=== PATIENT | male | born 1985 | race Caucasian/White ===

== ENCOUNTER 2020-02-17 11:19 | Emergency (ER) | payer OTHER ==
[2020-02-17 11:32] VITALS: TEMP 97.7
[2020-02-17] MEDS ORDERED: KETOROLAC 60 MG/2 ML VIAL IM STA (11:48)
--- NOTE | 2020-02-17 12:12 | XR ---
EXAMINATION TYPE: XR ankle complete RT DATE OF EXAM: 02/17/2020 COMPARISON: NONE HISTORY: Pain TECHNIQUE: Frontal, lateral and oblique images of the right ankle are obtained. COMPARISON: None. FINDINGS: Trimalleolar fracture noted. The soft tissue edema seen. Ankle mortise intact. IMPRESSION: Trimalleolar fracture.
[2020-02-17] MEDS ORDERED: HYDROcodone/APAP 7.5-325MG 1 EACH TAB PO ONE (12:55)
--- NOTE | 2020-02-17 13:20 | ED ---
Fall HPI - General Chief Complaint: Fall Stated Complaint: fall 12' from ladder Time Seen by Provider: 02/17/20 11:42 Source: patient Mode of arrival: wheelchair - History of Present Illness Initial Comments: Patient is a 34-year-old male presenting to emergency Department with complaints of right ankle pain after he jumped off of a ladder. Patient states this happened approximately one hour prior to arrival. He states he was on a ladder, cleaning off gutters when a swarm of bees started to come after him. Patient states he jumped backwards off the ladder, landing mostly on his right ankle. He states he did not hit his head, he denies any neck or back pain. He denies any upper extremity pain or belly pain. He states his only complaint from this fall is the right ankle pain. The previous ankle surgeries. He has no further complaints at this time. Upon arrival to the ER, his vitals are stable. - Related Data Previous Rx's Medication Instructions Recorded Hydrocodone/Acetaminophen [T[place] 1 tab PO Q6HR PRN #10 tab 02/17/20 5-325] Allergies Allergy/AdvReac Type Severity Reaction Status Date / Time No Known Allergies Allergy Verified 02/17/20 12:37 Review of Systems ROS Statement: Those systems with pertinent positive or pertinent negative responses have been documented in the HPI. ROS Other: All systems not noted in ROS Statement are negative. Past Medical History Past Medical History: No Reported History History of Any Multi-Drug Resistant Organisms: None Reported Past Surgical History: No Surgical Hx Reported Past Psychological History: No Psychological Hx Reported Smoking Status: Current every day smoker Past Alcohol Use History: Occasional Past Drug Use History: Marijuana General Exam - General Exam Comments Initial Comments: GENERAL: Patient is well-developed and well-nourished. Patient is nontoxic and in no acute distress. HEAD: Atraumatic, normocephalic. EYES: Pupils equal round and reactive to light, extraocular movements intact, sclera anicteric, conjunctiva are normal. Eyelids were unremarkable. ENT: TMs normal, nares patent, oropharynx clear without exudates. Moist mucous membranes. NECK: Normal range of motion, supple without lymphadenopathy or JVD. LUNGS: Unlabored respirations. Breath sounds clear to auscultation bilaterally and equal. No wheezes rales or rhonchi. HEART: Regular rate and rhythm without murmurs, rubs or gallops. ABDOMEN: Soft, nontender, normoactive bowel sounds. No guarding, no rebound. No masses appreciated. : Deferred MUSCULOSKELETAL: Pain with palpation of the right medial and lateral ankle, obvious deformity felt on the lateral malleolus. There is some moderate edema. Patient has decreased ankle range of motion secondary to pain. He does have full toe range of motion. He is neurovascular intact. No clubbing or cyanosis. NEUROLOGICAL: Patient is alert and oriented x 3. Motor and sensory are also intact. Normal speech. Symmetrical smile. PSYCH: Normal mood, normal affect. SKIN: Warm, Dry, normal turgor, no rashes or lesions noted. Limitations: no limitations Course Vital Signs 02/17/20 02/17/20 11:30 14:13 Temperature 97.7 F Pulse Rate 57 L 79 Respiratory 20 18 Rate Blood Pressure 116/73 120/80 O2 Sat by Pulse 100 99 Oximetry Procedures - Orthopedic Splinting/Casting Injury #1 Side: right Lower Extremity Injury Location: short leg, ankle Lower Extremity Immobilizer: posterior splint, stirrup splint, Sampson wrap, synthetic pre-padded splint Medical Decision Making - Medical Decision Making Patient is a 34-year-old male here for right ankle pain after he jumped off of a ladder. X-rays reveal a trimalar fracture of the right ankle. There is no significant displacement. Patient was placed in a posterior and stirrup splint, well-padded. Patient will remain nonweightbearing. He will follow up with orthopedics. I did give patient a short prescription for [place] for pain. He is stable for discharge. Return parameters were discussed with the patient he verbalizes understanding. Case discussed with Dr. Estrada Disposition Clinical Impression: Closed trimalleolar fracture of right ankle, Fall Disposition: HOME SELF-CARE Condition: Stable Instructions (If sedation given, give patient instructions): Ankle Fracture (ED) Additional Instructions: Please return to the Emergency Department if symptoms worsen or any other concerns. Keep splint in place until follow-up with orthopedics. Rest, ice, elevate the right leg. Do not place any weight on the right lower extremity. Prescriptions: Hydrocodone/Acetaminophen [Tacoma 5-325] 1 tab PO Q6HR PRN #10 tab PRN Reason: Pain Is patient prescribed a controlled substance at d/c from ED?: Yes When asked, does pt state using other controlled substances?: No If prescribed controlled substance>3 days was MAPS reviewed?: Prescribed <3 Days If opioid is for acute pain is fill amount 7 days or less?: Yes If Rx opioid, was Start Talking consent form obtained?: Yes Referrals: None,Stated [Primary Care Provider] - 1-2 days James Rajan, DO [Medical Doctor] - 1-2 days
[2020-02-17 14:14] VITALS: BP 120/80; PULSE 79; RESP 18
== END 2020-02-17 13:30 | disposition home or self-care (01) ==
LOC: EC 11:19
DX: S82.851A Displaced trimalleolar fracture of right lower leg, initial encounter for closed fracture (principal); F17.200 Nicotine dependence, unspecified, uncomplicated; W17.89XA Other fall from one level to another, initial encounter; Y93.89 Activity, other specified; Y92.009 Unspecified place in unspecified non-institutional (private) residence as the place of occurrence of the external cause
CPT/HCPCS: 73610; 99283; 96372; 29515; J1885

== ENCOUNTER 2020-02-24 13:58 | Day surgery (SDC) | payer SELFPAY ==
[2020-02-23 12:31] VITALS: BMI 25.0
[~2020-02-24 13:58] MED LIST: DEXAMETHASONE SOD PHOSPHATE 10 MG/ML 1 ML VIAL IV ONE; HYDROmorphone 0.5 MG/0.5 ML SYRINGE IVP PRN; LACTATED RINGERS 1,000 ML IV SCH; MIDAZOLAM 2 MG/2 ML VIAL IV PRN; ONDANSETRON 4 MG/2 ML VIAL IVP ONE; SCOPOLAMINE 1.5MG/72HR PATCH TRANSDERM ONE
[2020-02-24] MEDS ORDERED: ONDANSETRON 4 MG/2 ML VIAL ONE (14:24)
[2020-02-24] MEDS ORDERED: LIDOCAINE 1% (10MG/ML) FOR IV START INTRADERMA ONE (14:40)
[2020-02-24] MEDS ORDERED: fentaNYL (PF) 50 MCG/ML 2 ML AMP ONE (16:02)
[2020-02-24] MEDS ORDERED: HYDROmorphone (PF) 1 MG/ML ONE (16:02)
[2020-02-24] MEDS ORDERED: LIDOCAINE 1% INJ 10MG/ML (20 ML MDV) ONE (16:02)
[2020-02-24] MEDS ORDERED: MIDAZOLAM 2 MG/2 ML VIAL ONE (16:02)
[2020-02-24] MEDS ORDERED: PROPOFOL 10 MG/ML 20 ML VIAL IV ONE (16:02)
[2020-02-24] MEDS ORDERED: ceFAZolin 1,000 MG in SODIUM CHLORIDE 0.9% 1,000 ML IRRIGATION ONE (16:32)
[2020-02-24] MEDS ORDERED: LACTATED RINGERS 1,000 ML IV ONE (17:10)
[2020-02-24] MEDS ORDERED: BUPIVACAINE (PF) 0.25% 30 ML VIAL SQ ONE (17:20)
--- NOTE | 2020-02-24 17:38 | P.OP ---
Date of Procedure: 02/24/20 Preoperative Diagnosis: Trimalleolar displaced fracture right ankle Postoperative Diagnosis: Trimalleolar displaced fracture right ankle Procedure(s) Performed: Open reduction and internal fixation of the distal fibula and medial malleolus Implants: Schultz and nephew small fragment plates Anesthesia: GETA Surgeon: Denny Marie Sequins Slinger #1: Ana Hammond Estimated Blood Loss (ml): 20 Pathology: none sent Condition: stable Disposition: PACU Indications for Procedure: This is a 34-year-old gentleman sustained a fracture of his right ankle last weekend. X-rays demonstrated displaced trimalleolar fracture of his right ankle with a displaced spiral fracture of his distal fibula and also displaced fracture of his medial malleolus and posterior malleolus. After discussing the surgical and nonsurgical treatment options with him at length I've recommended open reduction and internal fixation of his right ankle. He is agreeable to this informed consent was obtained. Operative Findings: The operative findings are consistent with a displaced trimalleolar fracture of the right ankle. Description of Procedure: The patient was seen and evaluated in the preoperative area. The consent was reviewed and the operative site was marked with a skin marker. Patient was then brought to the operating room and given 2 g of Ancef by the anesthesia department. A general anesthetic was then administered by the anesthesia department. Tourniquet was placed on the upper thigh and the lower extremity was then prepped and draped in the usual sterile fashion. A universal timeout was then performed which confirmed the patient's name, surgical site, ALLERGIES, and consent. The lower extremity was then exsanguinated, and the tourniquet inflated to 250 mmHg. A standard lateral incision was then performed over the distal fibula with the skin and subcutaneous tissue sharply incised with the incision centered over the fracture site. Tissues were carefully dissected down to the fracture site. The fracture hematoma was evacuated and the fracture was then reduced with bone reducing clamps. Fluoroscopic x-rays confirmed reduction of the fracture and rastafarian of the ankle mortise. Next, an anterior to posterior lag screw was then placed by over drilling the proximal hole. After the anterior to posterior lag screw was placed, the bone clamp was able to be removed and the fracture was held stable. Next, a one third semitubular plate was pre-bent for the patient's anatomy, and placed on the lateral aspect of the distal fibula. Screws were then were placed both proximally and distally in order to fixate the plate to the distal fibula. After all the screws then placed, final fluoroscopic x-rays confirmed reduction of the fracture, rastafarian of the ankle mortise, and placement of the plate and screws. Next attention was then directed to the medial malleolus. A small incision was made over the fracture site of the medial malleolus taking care to avoid the neurovascular structures. The medial malleolar fracture was debrided and a small amount of periosteum was removed from the fracture site. The fracture was then reduced and held with a towel clip. 2 cannulated screws then placed retrograde through the tip of the medial malleolus. Next, 2:30 millimeters screws then placed over the guidewires. Final fluoroscopic x-rays confirmed reduction of the fracture and reduction of the ankle mortise. The posterior malleolus fracture fragment was reduced anatomically and fixation was deemed not necessary. The tourniquet was then released and hemostasis was obtained. The incision site was then irrigated with antibiotic solution. Wound was then closed with 2-0 Vicryl for the subcutaneous tissue and nena for the skin. 20 cc of quarter percent plain Marcaine were then injected about the surgical site. Sterile dressings were applied, and a well-padded and molded posterior splint was placed. Patient was then transported to the recovery room in stable condition. The civil engineering assistant SHENG Monroe was required due to the complexity of the surgery and the need for a skilled surgical aide.
[2020-02-24] MEDS ORDERED: MEPERIDINE 50 MG/ML SYRINGE SQ ONE (17:41)
[2020-02-24] MEDS ORDERED: MEPERIDINE 50 MG/ML SYRINGE IVP ONE (17:46)
[2020-02-24 17:49] VITALS: TEMP 98
[2020-02-24] MEDS ORDERED: HYDROcodone/APAP 7.5-325MG 1 EACH TAB ONE (18:11)
[2020-02-24] MEDS ORDERED: HYDROcodone/APAP 7.5-325MG 1 EACH TAB PO ONE (18:15)
[2020-02-24 18:52] VITALS: PULSE 79
[2020-02-24 19:02] VITALS: BP 148/82; RESP 18
--- NOTE | 2020-02-24 19:38 | XR ---
Fluoroscopy INDICATION: Pain FINDINGS: Fluoroscopy time: 44 seconds. Images obtained: 2. IMPRESSIONS: 1. Documentation of fluoroscopy.
== END 2020-02-24 19:12 | disposition home or self-care (01) ==
LOC: OR 13:58
PROVIDERS: ATTEND Orthopaedic Surgery
DX: S82.851A Displaced trimalleolar fracture of right lower leg, initial encounter for closed fracture (principal); K21.9 Gastro-esophageal reflux disease without esophagitis; Z88.6 Allergy status to analgesic agent; W11.XXXA Fall on and from ladder, initial encounter; Y92.009 Unspecified place in unspecified non-institutional (private) residence as the place of occurrence of the external cause; Z72.0 Tobacco use
CPT/HCPCS: 76000; 73600; 27822; C1713; J2250; J1100; J2175; J0690 ×2; J2405; J2001; J3010; J1170; J2704

== ENCOUNTER 2021-07-06 07:48 | Emergency (ER) | payer OTHER ==
[2021-07-06 07:58] VITALS: RESP 18; TEMP 99.4
[2021-07-06] MEDS ORDERED: MAG HYDROX/AL HYDROX/SIMETH 30 ML, HYOSCYAMINE ELIXIR 10 ML, LIDOCAINE VISCOUS 2% 10 ML PO STA ×3 (08:08)
[2021-07-06] MEDS ORDERED: dexAMETHasone 4 MG TAB PO STA (08:08)
--- NOTE | 2021-07-06 08:11 | ED ---
General Adult HPI - General Chief complaint: ENT Stated complaint: Swollen throat Time Seen by Provider: 07/06/21 08:00 Source: patient Mode of arrival: ambulatory Limitations: no limitations - History of Present Illness Initial comments: Dictation was produced using [employer] dictation software. please excuse any grammatical, word or spelling errors. Chief Complaint: 36-year-old male presents with sore throat History of Present Illness: Patient 36-year-old male presents with sore throat. Patient states he's had symptoms for the last 1-2 days. Patient states that hurts when he swallows. Denies any changes in his voice. No runny nose, or cough. Patient stable to swallow. Patient has tried throat spray and popsicles with persistent symptoms. Patient denies any significant medical problems. Denies any sick contacts. The ROS documented in this emergency department record has been reviewed and confirmed by me. Those systems with pertinent positive or negative responses have been documented in the HPI. All other systems are other negative and/or noncontributory. PHYSICAL EXAM: General Impression: Alert and oriented x3, not in acute distress, normal phonia, no stridor, no hoarseness HEENT: Normocephalic atraumatic, extra-ocular movements intact, pupils equal and reactive to light bilaterally, mucous membranes moist. Oropharynx: Mild exudates on the bilateral tonsils, uvula midline, no peritonsillar fullness Cardiovascular: Heart regular rate and rhythm Chest: Able to complete full sentences, no retractions, no tachypnea Musculoskeletal: Pulses present and equal in all extremities, no peripheral edema Motor: no focal deficits noted Neurological: CN II-XII grossly intact, no focal motor or sensory deficits noted Skin: Intact with no visualized rashes Psych: Normal affect and mood ED course: 36-year-old male presents emergency department for odynophagia signs upon arrival are within acceptable limits. Patient negative for influenza. He is positive for group A strep. Discussed treatment options. Patient is agreeable for one time IM Bicillin injection. Return precautions discussed. Patient warned of symptoms of peritonsillar abscess and to seek medical attention if he develops any worsening pain, changes in his voice or trismus. - Related Data Home Medications Medication Instructions Recorded Confirmed No Known Home Medications 07/06/21 07/06/21 Allergies Allergy/AdvReac Type Severity Reaction Status Date / Time ibuprofen AdvReac Unknown Irritates Verified 07/06/21 08:31 stomach-"tear in stomach" Review of Systems ROS Statement: Those systems with pertinent positive or pertinent negative responses have been documented in the HPI. ROS Other: All systems not noted in ROS Statement are negative. Past Medical History Past Medical History: GERD/Reflux Additional Past Medical History / Comment(s): states tear in stomach from ibuprofen., fx right ankle with splint-using crutches. History of Any Multi-Drug Resistant Organisms: None Reported Past Surgical History: Orthopedic Surgery Additional Past Surgical History / Comment(s): R ankle Past Anesthesia/Blood Transfusion Reactions: Motion Sickness Additional Past Anesthesia/Blood Transfusion Reaction / Comment(s): no anesthesia hx. Past Psychological History: No Psychological Hx Reported Smoking Status: Current every day smoker, Heavy tobacco smoker Past Alcohol Use History: Occasional, Rare Past Drug Use History: Marijuana - Past Family History Mother Family Medical History: Cancer Additional Family Medical History / Comment(s): cancer of moles General Exam Limitations: no limitations Course Vital Signs 07/06/21 07:55 Temperature 99.4 F Pulse Rate 92 Respiratory 18 Rate Blood Pressure 144/89 O2 Sat by Pulse 98 Oximetry Medical Decision Making - Lab Data Lab Results 07/06/21 07/06/21 Range/Units 08:22 08:22 Influenza Type A RNA Not Detected (Not Detectd) Influenza Type B (PCR) Not Detected (Not Detectd) Group A Strep Rapid Positive A (Negative) Disposition Clinical Impression: Strep pharyngitis Disposition: HOME SELF-CARE Condition: Fair Instructions (If sedation given, give patient instructions): Strep Throat (DC) Is patient prescribed a controlled substance at d/c from ED?: No Referrals: None,Stated [Primary Care Provider] - 1-2 days
[2021-07-06] MEDS ORDERED: PENICILLIN G BENZATHINE 1,200,000 UNIT/2 ML SYRINGE IM STA (09:18)
[2021-07-06 10:44] VITALS: BP 123/99; PULSE 99
== END 2021-07-06 10:43 | disposition home or self-care (01) ==
LOC: EC 07:48
DX: J02.0 Streptococcal pharyngitis (principal); F17.200 Nicotine dependence, unspecified, uncomplicated
CPT/HCPCS: 87430; 87502; 99283; 96372; J8540; J0561

== ENCOUNTER 2024-06-15 11:45 | Emergency (ER) | payer OTHER ==
[2024-06-15 12:12] VITALS: RESP 18
[2024-06-15] MEDS: LIDOCAINE 1% INJ 10MG/ML (20 ML MDV) SQ ONE (12:16)
[2024-06-15] MEDS: HYDROcodone/APAP 5-325MG 1 EACH TAB PO STA (12:40)
--- NOTE | 2024-06-15 13:05 | ED ---
Skin/Abscess/FB HPI - General Chief complaint: Skin/Abscess/Foreign Body Stated complaint: Sore on back Time Seen by Provider: 06/15/24 12:03 Source: patient, RN notes reviewed Mode of arrival: ambulatory Limitations: no limitations - History of Present Illness Initial comments: 39-year-old male presents emergency department with chief complaint of abscess on his butt crack. Patient states has had this in the past. States it started 3 days ago states it is painful patient states he never follow-up with the surgeon after the first time he had this. Patient denies any fevers no drainage no other complaints. - Related Data Previous Rx's Medication Instructions Recorded Cephalexin [Keflex] 500 mg PO Q6HR #40 cap 06/15/24 Sulfamethox-Tmp 800-160Mg [Bactrim 1 each PO Q12HR #20 tab 06/15/24 Ds] Allergies Allergy/AdvReac Type Severity Reaction Status Date / Time ibuprofen AdvReac Unknown Irritates Verified 06/15/24 12:10 stomach-"tear in stomach" Review of Systems ROS Statement: Those systems with pertinent positive or pertinent negative responses have been documented in the HPI. ROS Other: All systems not noted in ROS Statement are negative. Past Medical History Past Medical History: GERD/Reflux Additional Past Medical History / Comment(s): states tear in stomach from ibuprofen., fx right ankle with splint-using crutches. History of Any Multi-Drug Resistant Organisms: None Reported Past Surgical History: Orthopedic Surgery Additional Past Surgical History / Comment(s): R ankle Past Anesthesia/Blood Transfusion Reactions: Motion Sickness Additional Past Anesthesia/Blood Transfusion Reaction / Comment(s): no anesthesia hx. Past Psychological History: No Psychological Hx Reported Smoking Status: Vaper Past Alcohol Use History: Occasional Past Drug Use History: Marijuana - Past Family History Mother Family Medical History: Cancer Additional Family Medical History / Comment(s): cancer of moles General Exam Limitations: no limitations General appearance: alert, in no apparent distress Head exam: Present: atraumatic, normocephalic, normal inspection Respiratory exam: Present: normal lung sounds bilaterally. Absent: respiratory distress, wheezes, rales, rhonchi, stridor Cardiovascular Exam: Present: regular rate, normal rhythm, normal heart sounds. Absent: systolic murmur, diastolic murmur, rubs, gallop, clicks GI/Abdominal exam: Present: soft, normal bowel sounds. Absent: distended, tenderness, guarding, rebound, rigid Rectal exam: Present: other (Buttocks there is erythematous changes at the cleft with moderate tenderness) Course Vital Signs 06/15/24 06/15/24 12:10 14:03 Temperature 98.4 F 98.2 F Pulse Rate 90 69 Respiratory 18 18 Rate Blood Pressure 129/78 130/81 O2 Sat by Pulse 98 95 Oximetry Procedures - Incision & Drainage Consent Obtained: verbal consent Site: buttock Anesthetic Used: lidocaine 1%, without epi Amount (mLs): 4 Sterile Field Used?: No Scalpel Used: #11 Ultrasound used: No I&D Drainage Obtained: Blood Insertion of drain: No Culture Obtained?: No Patient Tolerated Procedure: well, no complications Medical Decision Making - Medical Decision Making Was pt. sent in by a medical professional or institution (SHENG Jim, BUSINESS OPERATIONS COORDINATOR, urgent care, hospital, or [facility]...) When possible be specific @ -No Did you speak to anyone other than the patient for history (EMS, parent, family, police, friend...)? What history was obtained from this source @ -No Did you review nursing and triage notes (agree or disagree)? Why? @ -I reviewed and agree with nursing and triage notes Were old charts reviewed (outside hosp., previous admission, EMS record, old EKG, old radiological studies, urgent care reports/EKG's, [facility] records)? Report findings @ -No old charts were reviewed Differential Diagnosis (chest pain, altered mental status, abdominal pain women, abdominal pain men, vaginal bleeding, weakness, fever, dyspnea, syncope, headache, dizziness, GI bleed, back pain, seizure, CVA, palpatations, mental health, musculoskeletal)? @ -Rectal abscess, pilonidal abscess, EKG interpreted by me (3pts min.). @ -None X-rays interpreted by me (1pt min.). @ -None done CT interpreted by me (1pt min.). @ -CT of the pelvis showing thin-walled 1 cm posterior r abscess not involving the rectum U/S interpreted by me (1pt. min.). @ -None done What testing was considered but not performed or refused? (CT, X-rays, U/S, labs)? Why? @ -None What meds were considered but not given or refused? Why? @ -None Did you discuss the management of the patient with other professionals (professionals i.e. , PA, BUSINESS OPERATIONS COORDINATOR, lab, RT, psych nurse, social science analyst, maintenance millwright, teacher, staff air defense officer, patient case coordinator)? Give summary @ -No Was smoking cessation discussed for >3mins.? @ -No Was critical care preformed (if so, how long)? @ -No Were there social determinants of health that impacted care today? How? (Homelessness, low income, unemployed, alcoholism, drug addiction, transportation, low edu. Level, literacy, decrease access to med. care, senior care, rehab)? @ -No Was there de-escalation of care discussed even if they declined (Discuss DNR or withdrawal of care, Hospice)? DNR status @ -No What co-morbidities impacted this encounter? (DM, HTN, Smoking, COPD, CAD, Cancer, CVA, ARF, Chemo, Hep., AIDS, mental health diagnosis, sleep apnea, morbid obesity)? @ -None Was patient admitted / discharged? Hospital course, mention meds given and route, prescriptions, significant lab abnormalities, going to OR and other pertinent info. @ -[Discharged patient did have attempted I&D with no significant drainage patient has very small abscess in which patient was placed on dual antibiotic therapy warm compresses analgesics and follow-up with surgery. Undiagnosed new problem with uncertain prognosis? @ -No Drug Therapy requiring intensive monitoring for toxicity (Heparin, Nitro, Insulin, Cardizem)? @ -No Were any procedures done? @ -No Diagnosis/symptom? @ -Buttocks abscess Acute, or Chronic, or Acute on Chronic? @ -Acute Uncomplicated (without systemic symptoms) or Complicated (systemic symptoms)? @ -Uncomplicated Side effects of treatment? @ -No Exacerbation, Progression, or Severe Exacerbation? @ -No Poses a threat to life or bodily function? How? (Chest pain, [place], ID, pneumonia, PE, COPD, DKA, ARF, appy, cholecystitis, CVA, Diverticulitis, Homicidal, Suicidal, threat to staff... and all critical care pts) @ -No Disposition Clinical Impression: Abscess of buttock Disposition: HOME SELF-CARE Condition: Stable Instructions (If sedation given, give patient instructions): Abscess (ED) Additional Instructions: Please return to the Emergency Department if symptoms worsen or any other concerns. Prescriptions: Sulfamethox-Tmp 800-160Mg [Bactrim Ds] 1 each PO Q12HR #20 tab Cephalexin [Keflex] 500 mg PO Q6HR #40 cap Is patient prescribed a controlled substance at d/c from ED?: No Referrals: None,Stated [Primary Care Provider] - 1-2 days Teo Patel DO [Medical Doctor] - 1-2 days Time of Disposition: 13:41
--- NOTE | 2024-06-15 13:35 | CT ---
EXAMINATION TYPE: CT pelvis wo con DATE OF EXAM: 06/15/2024 COMPARISON: None. CLINICAL INDICATION: Male, 39 years old with history of abscess, rectal pain; PHH, RECTAL PAIN, ABSCE SS CT DLP: 396.6 mGycm Automated exposure control for dose reduction was used. FINDINGS: There is 1.2 cm round thin-walled fluid collection posterior to the rectum with mild surrounding fat stranding consistent with tiny abscess on axial image 52. Remainder of the study is unremarkable. IMPRESSION: ABOVE. [facility], , 06/15/2024 1:33 PM
[2024-06-15] MEDS: ACET/COD 300 MG/30 MG STARTER PACK 6 TAB BTL PO STA (14:01)
[2024-06-15 14:05] VITALS: BP 130/81; PULSE 69; TEMP 98.2
== END 2024-06-15 14:43 | disposition home or self-care (01) ==
LOC: EC 11:45
DX: L02.31 Cutaneous abscess of buttock (principal); F17.290 Nicotine dependence, other tobacco product, uncomplicated; Z88.6 Allergy status to analgesic agent
CPT/HCPCS: 72192; 99283; 10060; J2003